=== PATIENT | female | born 1960 | race Caucasian/White ===

== ENCOUNTER → 2017-05-03 20:13 | Outpatient (CLI) | payer BC ==
[2017-05-03 21:03] LABS: ALBUMIN 4.2 g/dL (3.4-5.0); T4 THYROXIN - FREE 1.01 ng/dL (0.76-1.46); THYROID STIMULATING HORMONE 1.93 uIU/mL (0.36-3.74)
[2017-05-05 08:17] LABS: FOLATE (FOLIC ACID) - SERUM 13.6 ng/mL (>3.0)
[2017-05-05 11:18] LABS: ANA REFLEX - DIRECT Negative (Negative)
== END | disposition home or self-care (01) ==
LOC: D.LABREF 20:13
PROVIDERS: Student in an Organized Health Care Education/Training Program
DX: R53.83 Other fatigue (principal); R51 Headache; E63.9 Nutritional deficiency, unspecified